=== PATIENT | female | born 1965 | race Caucasian/White ===

== ENCOUNTER 2025-01-18 08:22 | Emergency (ER) | payer OTHER, SELFPAY ==
[2025-01-18] VITALS (12 sets, daily range): BP systolic 102–105; BP diastolic 64–68; PULSE 61–83; TEMP 36.4; O2SAT 98–100; BMI 20.3
--- NOTE | 2025-01-18 08:28 | ECG_ITS ---
[facility] Test Date: 2025-01-18 Pat Name: JADIEL ROSE Department: Room: - Gender: Female Engagement Manager: : [id number] Requested By: [id number] Order Number: [id number] Reading MD: DANY POOL M.D. Measurements Intervals [place] Rate: 68 P: 78 AR: 136 QRS: 68 QRSD: 92 T: 39 QT: 408 QTc: 426 Interpretive Statements 1100 Sinus rhythm 9110 normal ECG Compared to ECG 03/18/2019 10:19:09 ST (T wave) deviation no longer present Electronically Signed On 01-18-2025 22:54:12 EDT by DANY POOL M.D.
--- NOTE | 2025-01-18 08:28 | ED.GENADUL1 ---
HPI HPI - General Adult General Chief complaint: Neuro Symptoms/Deficit Stated complaint: ALTERED MENTAL STATUS Time Seen by Provider: 01/18/25 08:22 History of Present Illness HPI narrative: 59-year-old female presents to the emergency department for what appears to be a near syncopal episode. 2 days ago she had outpatient surgery on her left wrist. Today was her first visit to outpatient physical rehab. While she was there and signing in she became dizzy and lightheaded. She had taken her pain medication, hydrocodone, prior to going to rehab. Paramedics came and found her blood pressure to be 80/50. They started an IV and gave her IV fluids and they transported her here. She had 2 pieces of toast and 2 cups of coffee for breakfast which is less than she typically would have. She does not complain of chest pain and there is been no fever or trauma or vomiting. Related Data Home Medications ?Medication ?Instructions ?Recorded ?Confirmed hydrocodone 5 mg-acetaminophen 325 tab 01/18/25 mg tablet levothyroxine 150 mcg tablet mcg 01/18/25 loratadine 10 mg tablet mg 01/18/25 naproxen 500 mg tablet mg 01/18/25 Allergies Allergy/AdvReac Type Severity Reaction Status Date / Time No Known Drug Allergies Allergy Verified 01/18/25 08:29 Review of Systems ROS Narrative A ten point review of systems is negative except as noted above. PFSH PFSH Social History Little interest or pleasure in doing things: not at all Feeling down, depressed, or hopeless: not at all Exam Narrative Exam Narrative: Nurses note and vital signs reviewed and patient is not hypoxic. General: The patient appears in no apparent distress. Patient is resting comfortably on cart. Skin: Warm, dry, no pallor noted. There is no rash noted. Head: Normocephalic, atraumatic Eye: Normal conjunctiva, no drainage Ears, Nose, Mouth, and Throat: oral mucosa is moist. Nares patent. Cardiovascular: Regular Rate and Rhythm Respiratory: Patient is in no distress, no accessory muscle use, lungs are clear to auscultation, no wheezing, rales or rhonchi Back: non-tender GI: Soft and nontender Musculoskeletal: Left arm has cast in place. Neurological: A&O x4, normal speech Psychiatric: Cooperative Constitutional Vital Signs, click to edit/add: Last Vital Signs Temp 97.6 F 01/18/25 08:22 Pulse 78 01/18/25 08:22 Resp 18 01/18/25 08:22 BP 102/64 01/18/25 08:22 Pulse Ox 99 01/18/25 08:22 O2 Del Method Room Air 01/18/25 08:22 Course Vital Signs Vital signs: Vital Signs Temperature 97.6 F 01/18/25 08:22 Pulse Rate 78 01/18/25 08:22 Respiratory Rate 18 01/18/25 08:22 Blood Pressure 102/64 01/18/25 08:22 Pulse Oximetry 99 01/18/25 08:22 Oxygen Delivery Method Room Air 01/18/25 08:22 Temperature 97.6 F 01/18/25 08:22 Pulse Rate 78 01/18/25 08:22 Respiratory Rate 18 01/18/25 08:22 Blood Pressure 102/64 01/18/25 08:22 Pulse Oximetry 99 01/18/25 08:22 Oxygen Delivery Method Room Air 01/18/25 08:22 Medical Decision Making MDM Narrative Medical decision making narrative: Her workup is negative. She is feeling improved. I discussed the cause of her symptoms with the patient and we are in agreement that this is most likely medication side effect, the hydrocodone. She will use caution with taking it in the future. Treatment diagnosis and follow-up were discussed with the patient. Lab Data Lab results reviewed: Yes I reviewed the patient's lab results Labs: Lab Results 01/18/25 01/18/25 01/18/25 Range/Units 08:51 08:55 09:48 WBC 12.0 H (4.0-11.0) 10^3/uL RBC 3.55 L (4.20-5.40) 10^6/uL Hgb 11.4 L (12.0-16.0) g/dL Hct 36.1 (36.0-48.0) % MCV 101.7 H (81.0-99.0) fL MCH 32.1 (26.7-34.0) pg MCHC 31.6 (29.9-35.2) g/dL RDW 12.9 (11.0-15.0) % Plt Count 259 (150-450) 10^3/uL MPV 10.0 (9.5-13.5) fL Neut % (Auto) 69.4 (43.0-75.0) % Lymph % (Auto) 18.1 L (20.5-60.0) % Stanley % (Auto) 8.2 (1.7-12.0) % Eos % (Auto) 3.2 (0.9-7.0) % Baso % (Auto) 0.7 (0.2-2.0) % Neut # (Auto) 8.3 H (1.4-6.5) 10^3/uL Lymph # (Auto) 2.2 (1.2-3.8) 10^3/uL Stanley # (Auto) 1.0 H (0.3-0.8) 10^3/uL Eos # (Auto) 0.4 (0.0-0.7) 10^3/uL Baso # (Auto) 0.1 (0.0-0.1) 10^3/uL Abs Immat Gran (auto) 0.05 H (0.00-0.03) 10^3/uL Imm/Tot Granulo (auto) 0.4 (0.0-0.5) % Sodium 141 (136-145) mmol/L Potassium 4.2 (3.5-5.1) mmol/L Chloride 108 H (98-107) mmol/L Carbon Dioxide 24.8 (21.0-32.0) mmol/L Anion Gap 12.4 BUN 22.0 H (7.0-18.0) mg/dL Creatinine 0.76 (0.55-1.02) mg/dL Est GFR ( Amer) >60 (>=60 mL/min/1.73m^2) Est GFR (Non-Af Amer) >60 (>=60 mL/min/1.73m^2) BUN/Creatinine Ratio 28.9 Glucose 80 (74-106) mg/dL Calcium 8.2 L (8.5-10.1) mg/dL POC Glucose 73 L 86 (74-106) mg/dL ECG Data Attestation: I personally reviewed and interpreted this ECG as follows: (EKG on my interpretation shows normal sinus rhythm with a rate of 68 and no acute) Discharge Plan Discharge Chief Complaint: Neuro Symptoms/Deficit Clinical Impression: Medication side effect Patient Disposition: Home, Self-Care Time of Disposition Decision: 09:50 Condition: Good Mode of Transportation: Private Vehicle Prescriptions / Home Meds: No Action hydrocodone-acetaminophen 5-325 mg tablet levothyroxine 150 mcg tablet loratadine 10 mg tablet naproxen 500 mg tablet Print Language: Citizen Of [place] Instructions: Adverse Drug Reaction (ED) Referrals: DAI THIBODEAUX [Primary Care Provider, Family Practice] - 1 week
[2025-01-18] MEDS: 0.9 % SODIUM CHLORIDE 1,000 ML 1000 ML IV (08:41)
[2025-01-18 08:57] LABS: Basophils Absolute Auto 0.1 10^3/uL (0.0-0.1); Basophils Percent Auto 0.7 % (0.2-2.0); Eosinophils Absolute Auto 0.4 10^3/uL (0.0-0.7); Eosinophils Percent Auto 3.2 % (0.9-7.0); Hematocrit 36.1 % (36.0-48.0); Hemoglobin 11.4 g/dL (12.0-16.0); Immature Granulocytes Abs Auto 0.05 10^3/uL (0.00-0.03); Immature Granulocytes Pct Auto 0.4 % (0.0-0.5); Lymphocytes Absolute Auto 2.2 10^3/uL (1.2-3.8); Lymphocytes Percent Auto 18.1 % (20.5-60.0); Mean Corpuscular HGB Conc 31.6 g/dL (29.9-35.2); Mean Corpuscular Hemoglobin 32.1 pg (26.7-34.0); Mean Corpuscular Volume 101.7 fL (81.0-99.0); Monocytes Percent Auto 8.2 % (1.7-12.0); Neutrophils Absolute Auto 8.3 10^3/uL (1.4-6.5); Neutrophils Percent Auto 69.4 % (43.0-75.0); Platelet Count 259 10^3/uL (150-450); Red Blood Count 3.55 10^6/uL (4.20-5.40); Red Cell Distribution Width 12.9 % (11.0-15.0)
[2025-01-18 08:57] LABS: Glucometer 73 mg/dL (74-106)
[2025-01-18 09:08] LABS: Anion Gap 12.4; BUN Creatinine Ratio 28.9; Calcium 8.2 mg/dL (8.5-10.1); Carbon Dioxide 24.8 mmol/L (21.0-32.0); Chloride 108 mmol/L (98-107); Estimated GFR (African America >60 (>=60 mL/min/1.73m^2); Estimated GFR (Non-African Ame >60 (>=60 mL/min/1.73m^2); Glucose 80 mg/dL (74-106); Potassium 4.2 mmol/L (3.5-5.1); Sodium 141 mmol/L (136-145)
[2025-01-18 09:49] LABS: Glucometer 86 mg/dL (74-106)
== END 2025-01-18 10:04 | disposition home or self-care (01) ==
PROVIDERS: Emergency Provider Emergency Medicine; PCP Family Medicine
DX: R42 Dizziness and giddiness (principal); T40.2X5A Adverse effect of other opioids, initial encounter; Z98.890 Other specified postprocedural states
CPT/HCPCS: 36415; 80048; 82948; 85025; 93005; 99284